=== PATIENT | male | born 1980 | race Caucasian/White ===

== ENCOUNTER → 2020-03-18 09:31 | Outpatient (BNVA) | payer BC, SELFPAY | PROVIDERS: PCP Internal Medicine Medical Oncology; Visit Provider Anesthesiology | DX: Z76.89 Persons encountering health services in other specified circumstances (principal) ==

== ENCOUNTER → 2020-04-08 14:28 | Outpatient (BNVA) | payer BC, SELFPAY | PROVIDERS: PCP Internal Medicine Medical Oncology; Visit Provider Anesthesiology | DX: Z76.89 Persons encountering health services in other specified circumstances (principal) ==

== ENCOUNTER → 2020-05-06 16:06 | Outpatient (BNVA) | payer BC, SELFPAY | PROVIDERS: PCP Internal Medicine Medical Oncology; Referring Provider Internal Medicine Medical Oncology; Visit Provider Anesthesiology | DX: Z76.89 Persons encountering health services in other specified circumstances (principal) ==

== ENCOUNTER → 2020-06-07 15:41 | Outpatient (BNVA) | payer BC, SELFPAY | PROVIDERS: PCP Internal Medicine Medical Oncology; Visit Provider Anesthesiology | DX: Z76.89 Persons encountering health services in other specified circumstances (principal) ==

== ENCOUNTER → 2020-07-08 15:54 | Outpatient (BNVA) | payer BC, SELFPAY | PROVIDERS: PCP Internal Medicine Medical Oncology; Visit Provider Anesthesiology ==

== ENCOUNTER → 2020-08-04 11:22 | Outpatient (BNVA) | payer BC, SELFPAY | PROVIDERS: PCP Internal Medicine Medical Oncology; Visit Provider Urology ==

== ENCOUNTER → 2020-09-02 08:00 | Outpatient (BNVA) | payer BC, SELFPAY | PROVIDERS: PCP Internal Medicine Medical Oncology; Visit Provider Anesthesiology ==

== ENCOUNTER → 2020-09-15 12:54 | Outpatient (BNVA) | payer BC, SELFPAY | PROVIDERS: PCP Internal Medicine Medical Oncology; Visit Provider Urology ==

== ENCOUNTER → 2021-02-23 16:21 | Outpatient (BNVA) | payer BC, SELFPAY | PROVIDERS: Visit Provider Anesthesiology ==

== ENCOUNTER → 2021-03-11 08:42 | Outpatient (BNVA) | payer BC, SELFPAY | PROVIDERS: Visit Provider Anesthesiology ==

== ENCOUNTER 2021-03-23 19:14 | Outpatient (REF) | payer BC, SELFPAY ==
--- NOTE | ~2021-03-23 | MR_ITS ---
EXAMINATION: MR LUMBAR SPINE WITHOUT CONTRAST CLINICAL INFORMATION: Cauda equina syndrome. COMPARISON: MRI scan of the lumbar spine 04/14/2019. TECHNIQUE: MRI of the lumbar spine was obtained using routine sequences without contrast. FINDINGS: VERTEBRAL BODIES AND PARASPINAL STRUCTURES: There is a mild levoscoliosis. There is marked narrowing of intervertebral disc height between L1-L2 and L5-S1. There are no compression fractures and vertebral body heights are maintained. There are degenerative endplate contour changes at multiple levels. There are extensive edematous endplate signal changes centrally and toward the left at L5-S1, increased compared to prior imaging. Mild edematous endplate signal changes are redemonstrated posteriorly at L1-L2. Overall, marrow signal is homogenous. The visualized retroperitoneal and pelvic structures are unremarkable. CONUS MEDULLARIS AND CAUDA EQUINA: Normal, terminating at the level of L1. The lower thoracic spinal cord and cauda equina nerve roots are normal. There is mild fatty signal the distal non-thickened filum terminale. SPINAL LEVELS: L1-L2: There is mild bilateral facet arthropathy. There has been interval increase in the size of a right paracentral disc protrusion with extruded components extending behind the bodies of L1 and L2 to the right of midline. There is distortion of the ventral thecal sac and marked narrowing of the right subarticular recess. The neural foramina are patent bilaterally. There is mild central stenosis. L2-L3: There is mild bilateral facet arthropathy. There is a posterior disc protrusion which distorts the ventral thecal sac, with mild extrusion extending behind the body of L3 in the midline. The extrusion extending into the left subarticular recess is less prominent compared to prior imaging. There is mild central stenosis. There is no foraminal nerve root impingement. L3-L4: There is mild bilateral facet arthropathy. There is a posterior disc protrusion which distorts the ventral thecal sac, and has extruded component extending behind the bodies of L3 and L4. There is mild narrowing of the bilateral subarticular recesses. The neural foramina are patent, and there is no central stenosis. L4-L5: There is moderate bilateral facet arthropathy with ligamenta flava hypertrophy and facet joint effusions. There is a posterior disc protrusion which distorts the ventral thecal sac. There is mild narrowing of the bilateral subarticular recesses. There is no central stenosis. There is no significant foraminal narrowing. L5-S1: There is moderate bilateral facet arthropathy. There is a broad-based posterior disc protrusion, with mild narrowing of the right subarticular recess. Disc osteophyte complexes bilaterally impinge on the exiting L5 nerve roots, more severely on the left. There is mild impingement on the traversing right S1 nerve root, minimally more prominent compared to prior imaging. There is no central stenosis. MR/MR lumbar spine wo con IMPRESSION: 1. There has been interval increase in the size of a right paracentral disc protrusion/extrusion at L1-L2. There is narrowing of the right subarticular recess. There is mild central stenosis. 2. At L5-S1 there is a posterior disc protrusion which extends into the neural foramina with impingement on the exiting L5 nerve roots. There is narrowing of the right subarticular recess with impingement traversing right S1 nerve root, slightly more prominent compared to prior imaging. 3. At L2-L3 there is a posterior disc protrusion. The previously noted extrusion extending into the left subarticular recess is less prominent compared to prior imaging. There is mild central stenosis. 4. There are also spondylitic and facet arthropathic changes at other levels as described above.
== END 2021-03-23 19:15 | disposition home or self-care (01) ==
LOC: HO.MRI 19:14
PROVIDERS: PCP Internal Medicine Medical Oncology; Visit Provider Anesthesiology
DX: G83.4 Cauda equina syndrome (principal); M51.36 Other intervertebral disc degeneration, lumbar region; M47.816 Spondylosis without myelopathy or radiculopathy, lumbar region; F11.90 Opioid use, unspecified, uncomplicated; G89.4 Chronic pain syndrome
CPT/HCPCS: 72148

== ENCOUNTER → 2021-04-04 16:39 | Outpatient (BNVA) | payer BC, SELFPAY | PROVIDERS: PCP Internal Medicine Medical Oncology; Visit Provider Anesthesiology ==

== ENCOUNTER → 2021-04-18 13:15 | Outpatient (BNVA) | payer BC, SELFPAY | PROVIDERS: Visit Provider Anesthesiology ==

== ENCOUNTER → 2021-05-04 15:03 | Outpatient (BNVA) | payer BC, SELFPAY | PROVIDERS: PCP Internal Medicine Medical Oncology; Visit Provider Nurse Practitioner Family ==

== ENCOUNTER → 2021-06-01 15:51 | Outpatient (BNVA) | payer BC, SELFPAY | PROVIDERS: PCP Internal Medicine Medical Oncology; Visit Provider Anesthesiology ==

== ENCOUNTER → 2021-06-29 15:54 | Outpatient (BNVA) | payer BC, SELFPAY | PROVIDERS: PCP Internal Medicine Medical Oncology; Visit Provider Anesthesiology ==

== ENCOUNTER → 2021-07-27 15:50 | Outpatient (BNVA) | payer BC, SELFPAY | PROVIDERS: PCP Internal Medicine Medical Oncology; Visit Provider Anesthesiology ==

== ENCOUNTER → 2021-08-24 16:20 | Outpatient (BNVA) | payer BC, SELFPAY | PROVIDERS: PCP Internal Medicine Medical Oncology; Visit Provider Anesthesiology | DX: Z13.89 Encounter for screening for other disorder (principal) ==

== ENCOUNTER 2021-09-06 14:17 | Outpatient (REF) | payer BC, SELFPAY ==
--- NOTE | ~2021-09-06 | US_ITS ---
EXAMINATION: US SCROTUM CLINICAL INFORMATION: Undescended testicle. COMPARISON: None TECHNIQUE: A sonogram of the scrotum was performed assessing garcia-scale appearance and color Doppler flow. Spectral Doppler analysis of the arterial and venous flow were performed in the testes bilaterally. FINDINGS: RIGHT: Right testicle measures 2.9 x 1.6 x 2.2 cm, volume 5.4 mL. No focal testicular parenchymal lesions are visualized. Spectral Doppler analysis of the arterial and venous flow is normal in the right testis. No right hydrocele or varicocele is seen. Right epididymis isn't prominent. Right epididymal Doppler flow is increased. LEFT: Left testicle measures 2.8 x 1.4 x 2.2 cm, volume 4.5 mL. There is a 3 x 3 x 2 mm hypoechoic lesion in the inferior left testicle. Spectral Doppler analysis of the arterial and venous flow is normal in the left testis. Left epididymal head is normal in size. There is a 3 mm epididymal head cyst. No left hydrocele or varicocele is seen. Left epididymal Doppler flow is normal. US/US scrotum IMPRESSION: Small testicles. 3 mm hypoechoic lesion in the inferior left testicle. Infectious, inflammatory and neoplastic process should be considered. Enlarged hypervascular right epididymis suggestive of epididymitis. Follow-up scrotal ultrasound following antibiotic treatment recommended. 3 mm left epididymal head cyst
== END 2021-09-06 14:18 | disposition home or self-care (01) ==
LOC: HO.US 14:17
PROVIDERS: PCP Internal Medicine Medical Oncology; Visit Provider Internal Medicine Medical Oncology
DX: Q53.10 Unspecified undescended testicle, unilateral (principal)
CPT/HCPCS: 76870

== ENCOUNTER → 2021-09-22 15:51 | Outpatient (BNVA) | payer BC, SELFPAY | PROVIDERS: PCP Internal Medicine Medical Oncology; Visit Provider Anesthesiology | DX: Z13.89 Encounter for screening for other disorder (principal) ==

== ENCOUNTER → 2021-10-24 13:21 | Outpatient (BNVA) | payer BC, SELFPAY | PROVIDERS: PCP Internal Medicine Medical Oncology; Visit Provider Anesthesiology | DX: Z51.81 Encounter for therapeutic drug level monitoring (principal); F11.20 Opioid dependence, uncomplicated | CPT/HCPCS: 99211 ==

== ENCOUNTER 2021-10-27 10:34 | Outpatient (REF) | payer BC, SELFPAY ==
--- NOTE | 2021-10-27 10:38 | EMG_ITS ---
Right tibial and peroneal motor studies were performed. Right superficial peroneal and sural sensory studies were performed. Tibial H-reflex was obtained. Needle examination was performed. IMPRESSION: 1. Probably multilevel right lumbar radiculopathy suggestive of spinal stenosis. 2. 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 3. No evidence of generalized peripheral neuropathy. MD EDWINA Amor/MODL / [id number]
== END 2021-10-27 10:35 | disposition home or self-care (01) ==
LOC: HO.NEURO 10:34
PROVIDERS: PCP Internal Medicine Medical Oncology; Visit Provider Anesthesiology
DX: G89.4 Chronic pain syndrome (principal); M51.36 Other intervertebral disc degeneration, lumbar region; G62.9 Polyneuropathy, unspecified; F11.90 Opioid use, unspecified, uncomplicated
CPT/HCPCS: 95886; 95909

== ENCOUNTER 2021-12-01 12:32 | Outpatient (REF) | payer BC, SELFPAY ==
[2021-12-01 13:47] LABS: MANUAL DIFF FLAG NO
[2021-12-01 13:49] LABS: Basophils Absolute Auto 0.1 X10*3/uL (0.0-0.2); Basophils Percent Auto 2.1 % (0-2); Eosinophils Absolute Auto 0.2 X10*3/uL (0.0-0.4); Eosinophils Percent Auto 5.5 % (0-4); Hematocrit 45.5 % (42.0-52.0); Hemoglobin 15.2 g/dl (14.0-18.0); Imm Gran Abs Auto 0.01 X10*3/uL (0.00-0.03); Imm Gran Pct Auto 0.2 % (0.0-0.4); Lymphocytes Absolute Auto 1.1 X10*3/uL (1.2-4.9); Lymphocytes Percent Auto 27.2 % (20-40); Mean Corpuscular HGB Conc 33.4 g/dl (31.0-36.0); Mean Corpuscular Hemoglobin 31.7 pg (27.0-33.0); Mean Corpuscular Volume 94.8 fL (80.0-98.0); Mean Platelet Volume 9.4 fL (9.4-12.4); Monocytes Absolute Auto 0.6 X10*3/uL (0.1-1.2); Monocytes Percent Auto 13.8 % (2-11); Neutrophils Absolute Auto 2.1 x10*3/uL (2.0-8.3); Neutrophils Percent Auto 51.2 % (45-73); Platelet Count 155 X10*3/uL (160-400); Red Cell Distribution Width 14.1 % (11.0-16.0); White Blood Count 4.2 X10*3/uL (4.8-10.8)
[2021-12-01 14:17] LABS: Alanine Aminotransferase 51 U/L (0-40); Albumin Level 4.6 g/dL (3.5-5.0); Alkaline Phosphatase 51 U/L (39-117); Anion Gap 16 (12-20); Aspartate Amino Transferase 79 U/L (5-37); Bilirubin Total 0.7 mg/dL (0.0-1.0); Blood Urea Nitrogen 6 mg/dL (9-16); Calcium 9.2 mg/dL (8.4-10.2); Carbon Dioxide 23 mmol/L (22-29); Chloride 105 mmol/L (96-108); Cholesterol 234 mg/dL; Estimated Glomerular Filt Rate > 60; Glucose Fasting 131 mg/dL (60-99); HDL Cholesterol 128 mg/dL; LDL Cholesterol Calculated 93 mg/dl; Potassium 4.1 mmol/L (3.3-5.1); Sodium 140 mmol/L (135-145); Total Protein 7.8 g/dL (6.5-8.0); Triglycerides 67 mg/dL
[2021-12-01 14:35] LABS: PSA,Total (Free>4and<10) 0.46 ng/mL (0.00-4.00)
[2021-12-07 16:57] LABS: Testosterone, Free 275.6 pg/mL (35.0-155.0); Testosterone, Total 1399 ng/dL (250-1100)
== END 2021-12-01 12:33 | disposition home or self-care (01) ==
LOC: HO.10HDL 12:32
PROVIDERS: PCP Internal Medicine Medical Oncology; Visit Provider Urology
DX: Z12.5 Encounter for screening for malignant neoplasm of prostate (principal); M1A.40X0 Other secondary chronic gout, unspecified site, without tophus (tophi); M47.16 Other spondylosis with myelopathy, lumbar region; J45.20 Mild intermittent asthma, uncomplicated; E29.1 Testicular hypofunction; N41.9 Inflammatory disease of prostate, unspecified
CPT/HCPCS: 36415; 80053; 80061; 84153; 84402; 84403; 84550; 85025

== ENCOUNTER 2022-03-03 16:38 | Outpatient (REF) | payer BC, SELFPAY ==
--- NOTE | ~2022-03-03 | MR_ITS ---
EXAMINATION: MR OF THE BRAIN WITHOUT CONTRAST CLINICAL INFORMATION: 41-year-old with self-reported memory loss, bilateral numbness and previous syncopal episode causing head injury. Evaluate for encephalopathy. COMPARISON: None. TECHNIQUE: Multiplanar multisequence MR imaging of the brain was done without IV contrast. FINDINGS: Brain Volume: Within normal limits within the limitations of qualitative assessment. Structural: No malformations. Brain and Meninges: DWI sequence demonstrates no restricted diffusion to suggest acute or subacute cerebral ischemia. A few faint scattered FLAIR signal hyperintensities are seen in the subcortical white matter of the cerebral hemispheres, right more than left which are nonspecific findings. There is very faint, subtle, confluent T2 hyperintensity in the subcortical and deeper white matter of both parietal lobes and periatrial regions compared to the frontal white matter, the etiology of which is uncertain. Otherwise the brain parenchyma is normal in signal intensity. Gradient refocused imaging demonstrates no evidence for abnormal magnetic susceptibility artifact to suggest hemorrhage, hemosiderin staining or abnormal mineral deposition. No extra-axial fluid collections, space-occupying process or mass effect are identified. Chan-white matter differentiation is well maintained. Ventricles and Subarachnoid Spaces: The ventricular system and subarachnoid spaces are within normal limits without hydrocephalus. Orbital Structures: The visualized orbital structures are grossly unremarkable within the limitations of the study. Vascular: Signal voids are noted in the visualized major intracranial vessels. Osseous Structures, Sinuses/Mastoids, Extracranial Soft Tissues: Unremarkable MR/MR head/brain wo con IMPRESSION: 1. No evidence for infarction, hemorrhage, extra-axial fluid collection, space-occupying process, mass effect or hydrocephalus. 2. Very faint confluent the white matter signal hyperintensity predominantly in the biparietal regions and primarily involving the deeper white matter which is associated with a few punctate subcortical white matter T2 hyperintensities in both cervical hemispheres. The findings are nonspecific. These are not typical for posterior reversible encephalopathy and are not consistent with subcortical arteriosclerotic encephalopathy. No evidence for toxic/metabolic or hypoxic-ischemic injury. Follow-up as per clinical indications. 3. No significant the disproportionate global or regional brain parenchymal volume loss within the limitations of a qualitative assessment.
== END 2022-03-03 16:39 | disposition home or self-care (01) ==
LOC: HO.MRI 16:38
PROVIDERS: Visit Provider Psychiatry & Neurology Neurology
DX: G93.40 Encephalopathy, unspecified (principal)
CPT/HCPCS: 70551

== ENCOUNTER 2023-04-03 04:47 | Emergency (ER) | payer OTHER, SELFPAY ==
[2023-04-03 04:52] VITALS: BP 157/101; PULSE 105; RESP 18; TEMP 36.2; O2SAT 98; BMI 25.1
== END 2023-04-03 06:03 | disposition left against medical advice (07) ==
PROVIDERS: Emergency Provider Emergency Medicine; PCP Internal Medicine Medical Oncology
DX: L60.0 Ingrowing nail (principal)
CPT/HCPCS: 99281

== ENCOUNTER 2023-08-22 19:13 | Outpatient (REF) | payer OTHER, SELFPAY | END 2023-08-22 19:14 | disposition home or self-care (01) | LOC: HO.LNP 19:13 | PROVIDERS: Visit Provider Internal Medicine Medical Oncology | DX: R19.8 Other specified symptoms and signs involving the digestive system and abdomen (principal) | CPT/HCPCS: 87070; 87147; 87205 ==

== ENCOUNTER 2025-03-25 10:15 | Outpatient (REF) | payer OTHER, SELFPAY ==
[2025-03-25 11:30] LABS: MANUAL DIFF FLAG NO
[2025-03-25 11:42] LABS: Hematocrit 41.7 % (42.0-52.0); Hemoglobin 13.6 g/dl (14.0-18.0); Imm Gran Abs Auto 0.03 X10*3/uL (0.00-0.03); Imm Gran Pct Auto 0.4 % (0.0-0.4); Lymphocytes Absolute Auto 2.5 X10*3/uL (1.2-4.9); Mean Corpuscular HGB Conc 32.6 g/dl (31.0-36.0); Mean Corpuscular Hemoglobin 30.6 pg (27.0-33.0); Mean Corpuscular Volume 93.9 fL (80.0-98.0); NRBC Abs Auto 0.000 X10*3/uL (0.0-0.012); NRBC Pct Auto 0.0 /100WBC (0.0-0.2); Platelet Count 304 X10*3/uL (160-400); Red Blood Count 4.44 X10*6/uL (4.60-5.80); White Blood Count 8.5 X10*3/uL (4.8-10.8)
[2025-03-25 12:16] LABS: Prostate Specific Antigen 0.51 ng/mL (<0.05-4.0)
[2025-03-25 12:37] LABS: Alanine Aminotransferase 28 U/L (0-40); Albumin Level 5.0 g/dL (3.5-5.0); Alkaline Phosphatase 52 U/L (39-117); Anion Gap 10 (12-20); Aspartate Amino Transferase 35 U/L (5-37); Blood Urea Nitrogen 23 mg/dL (9-16); Calcium 9.2 mg/dL (8.4-10.2); Carbon Dioxide 26 mmol/L (22-29); Chloride 107 mmol/L (96-108); Cholesterol 205 mg/dL (<200); Estimated Glomerular Filt Rate > 60; HDL Cholesterol 92 mg/dL (>40); Potassium 3.9 mmol/L (3.3-5.1); Sodium 139 mmol/L (135-145); Total Protein 8.4 g/dL (6.5-8.0); Triglycerides 69 mg/dL (<150)
[2025-03-25 12:39] LABS: Uric Acid 7.6 mg/dL (3.4-7.0)
== END 2025-03-25 10:16 | disposition home or self-care (01) ==
LOC: HO.10HDL 10:15
PROVIDERS: Visit Provider Internal Medicine Medical Oncology
DX: Z12.5 Encounter for screening for malignant neoplasm of prostate (principal); Z13.6 Encounter for screening for cardiovascular disorders; N40.0 Benign prostatic hyperplasia without lower urinary tract symptoms; M1A.40X0 Other secondary chronic gout, unspecified site, without tophus (tophi)
CPT/HCPCS: 36415; 80053; 80061; 84153; 84403; 84550; 85025